=== PATIENT | female | born 1960 | race Two or more races ===

== ENCOUNTER 2020-02-12 07:07 | Outpatient (CLI) | payer OTHER ==
[2020-02-12] MEDS ORDERED: LIDOCAINE 1%-EPI 1:100K, 20ML ONE (07:30)
[2020-02-12] MEDS ORDERED: LIDOCAINE 1%, 20ML ONE (07:30)
[2020-02-12] MEDS ORDERED: SODIUM BICARBONATE 4.2%, 5ML ONE (07:30)
== END 2020-02-12 23:59 | disposition home or self-care (01) ==
LOC: CFH 07:07
PROVIDERS: ATTEND Surgery
DX: N63.41 Unspecified lump in right breast, subareolar (principal); R59.0 Localized enlarged lymph nodes; C50.011 Malignant neoplasm of nipple and areola, right female breast; C77.3 Secondary and unspecified malignant neoplasm of axilla and upper limb lymph nodes; Z17.1 Estrogen receptor negative status [ER-]
CPT/HCPCS: 10035; 19083; 38505; 76942; 77065; 88305; 88360; J3490; 19285

== ENCOUNTER 2020-03-12 09:08 | Day surgery (SDC) | payer MEDICAID, OTHER ==
[~2020-03-12] VITALS: Ht 160 cm; Wt 58.3 kg
[2020-03-12 09:51] VITALS: BP 168/85
[2020-03-12] MEDS ORDERED: CEFAZOLIN PMX 1GM/50ML 50 ML ONE (09:58)
[2020-03-12] MEDS ORDERED: LIDOCAINE 1%, 20ML ONE (10:43)
[2020-03-12] MEDS ORDERED: CEFAZOLIN 1,000 MG in SODIUM CHLORIDE 0.9% 50 ML IV ONE (11:00)
[2020-03-12] MEDS ORDERED: NALOXONE 1 MG/ML, 2ML ONE (11:13)
[2020-03-12] MEDS ORDERED: FENTANYL PF 100 MCG/2ML ONE (11:13)
[2020-03-12] MEDS ORDERED: FLUMAZENIL 0.1 MG/1 ML, 5ML ONE (11:13)
[2020-03-12] MEDS ORDERED: MIDAZOLAM 1 MG/ML, 5ML ONE (11:14)
== END 2020-03-12 13:05 | disposition home or self-care (01) ==
LOC: OUT 09:08
PROVIDERS: ATTEND Internal Medicine Hematology & Oncology
DX: C50.811 Malignant neoplasm of overlapping sites of right female breast (principal); F17.210 Nicotine dependence, cigarettes, uncomplicated; Z17.1 Estrogen receptor negative status [ER-]
CPT/HCPCS: 36561; 76937; 77001; 99156; 99157; C1788; C1894; J0690; J1642; J2250; J3010; J2310

== ENCOUNTER → 2020-03-17 | Outpatient (CLI) | payer MEDICAID ==
[~2020-03-17] MED LIST: GADOTERATE 10 MMOL/20 ML VIAL ONE
== END | disposition home or self-care (01) ==
LOC: CFH 08:51
PROVIDERS: ATTEND Internal Medicine Hematology & Oncology
DX: C50.811 Malignant neoplasm of overlapping sites of right female breast (principal); N63.10 Unspecified lump in the right breast, unspecified quadrant; R59.0 Localized enlarged lymph nodes; R60.9 Edema, unspecified; R23.4 Changes in skin texture
CPT/HCPCS: 77049; A9575; C8908

== ENCOUNTER → 2020-07-21 | Outpatient (CLI) | payer MEDICAID | END | disposition home or self-care (01) | LOC: CFH 13:36 | PROVIDERS: ATTEND Internal Medicine Hematology & Oncology | DX: C50.811 Malignant neoplasm of overlapping sites of right female breast (principal) | CPT/HCPCS: 77049; A9575; C8908 ==

== ENCOUNTER → 2020-09-14 | Outpatient (CLI) | payer MEDICAID | END | disposition home or self-care (01) | LOC: CVU 15:38 | PROVIDERS: ATTEND Internal Medicine Hematology & Oncology | DX: I35.8 Other nonrheumatic aortic valve disorders (principal); C50.811 Malignant neoplasm of overlapping sites of right female breast; I11.9 Hypertensive heart disease without heart failure | CPT/HCPCS: 93306 ==